=== PATIENT | female | born 1965 ===

== ENCOUNTER 2024-07-03 06:18 | Day surgery (SDC) | payer OTHER, SELFPAY ==
[2024-07-02 09:48] VITALS: BMI 26.8
[2024-07-02 09:57] LABS: Hematocrit 42.9 % (37.0-47.0); Hemoglobin 14.5 g/dL (12.0-16.0); Mean Corp Hgb Conc. 33.8 g/dL (33.0-37.0); Mean Corpuscular Hgb 32.2 pg (27.0-31.0); Mean Corpuscular Volume 95.3 fL (81.0-99.0); Mean Platelet Volume 10.5 fL (7.4-10.4); Platelet Count 238 10^3/uL (130-400); Red Cell Dist. Width 13.8 % (11.5-14.5); White Blood Cell Count 7.4 10^3/uL (4.8-10.8)
[2024-07-02 10:53] LABS: ALT (SGPT) 30 U/L (0-35); AST (SGOT) 32 U/L (14-36); Albumin 4.1 g/dl (3.5-5.0); Alkaline Phosphatase 104 U/L (38-126); Blood Urea Nitrogen 19 mg/dl (7-17); Calcium 8.9 mg/dl (8.4-10.2); Carbon Dioxide 27 mmol/L (22-30); Chloride 104 mmol/L (98-107); Estimated Creatinine Clearance 73 ml/min; Glucose 97 mg/dl (70-99); Potassium 4.4 mmol/L (3.5-5.1); Sodium 144 mmol/L (135-145); Total Bilirubin 0.3 mg/dl (0.2-1.3); Total Protein 7.2 g/dl (6.3-8.2); eGFR > 60.00
[2024-07-03] VITALS (9 sets, daily range): BP systolic 104–164; BP diastolic 60–98; BMI 26.8
[2024-07-03] MEDS: NORMOSOL-R/PLASMALYTE-A 1000 IV (11:21)
== END 2024-07-03 14:57 | disposition home or self-care (01) ==
LOC: SDS 06:18
PROVIDERS: ATTENDING PHYSICIAN Otolaryngology Facial Plastic Surgery; FAMILY PHYSICIAN Family Medicine
DX: J38.1 Polyp of vocal cord and larynx (principal); F17.210 Nicotine dependence, cigarettes, uncomplicated
CPT/HCPCS: 31536; 88305; 80053; 85027; 93005